=== PATIENT | female | born 1985 | race Caucasian/White ===

== ENCOUNTER 2020-10-23 10:21 | Day surgery (SDC) | payer OTHER ==
[~2020-10-23] VITALS: Ht 157.5 cm; Wt 134.9 kg
[~2020-10-23 10:21] MED LIST: BUPR300T49 PO; CHOL10003 PO; CYCL10TA2 PO; DICY10CA3 PO; GALC120P IM; HYDROCODONE PO; LACT10SO28 PO; METO-93 PO; NITR50CA PO; ONDANSETRON; PANT40TA3 PO; PENT100C2 PO; ROSU5TAB PO; ZOLP10TA PO
[2020-10-23 10:46] VITALS: BP 131/84
[2020-10-23] MEDS ORDERED: CHLORHEXIDINE 15 ML UDC ONE (10:51)
[2020-10-23] MEDS ORDERED: CHLORHEXIDINE 15 ML UDC PO ONE (11:00)
[2020-10-23] MEDS ORDERED: LACTATED RINGERS 1,000 ML IV SCH (11:00)
[2020-10-23] MEDS ORDERED: PROPOFOL 10 MG/ML, 20ML ONE ×3 (11:54→12:11)
[2020-10-23] MEDS ORDERED: MIDAZOLAM 1 MG/ML, 2ML ONE (12:32)
== END 2020-10-23 13:47 | disposition home or self-care (01) ==
LOC: OUT 10:21
PROVIDERS: ATTEND Internal Medicine
DX: K31.5 Obstruction of duodenum (principal); K21.9 Gastro-esophageal reflux disease without esophagitis; K59.04 Chronic idiopathic constipation; M79.7 Fibromyalgia; F41.9 Anxiety disorder, unspecified; G43.909 Migraine, unspecified, not intractable, without status migrainosus; E66.01 Morbid (severe) obesity due to excess calories; Z20.822 Contact with and (suspected) exposure to COVID-19; Z68.43 Body mass index [BMI] 50.0-59.9, adult; Z79.891 Long term (current) use of opiate analgesic; Z79.899 Other long term (current) drug therapy; Z87.891 Personal history of nicotine dependence; Z91.018 Allergy to other foods; Z98.890 Other specified postprocedural states; Z82.49 Family history of ischemic heart disease and other diseases of the circulatory system; Z83.2 Family history of diseases of the blood and blood-forming organs and certain disorders involving the immune mechanism
CPT/HCPCS: 43245; C1725; J2704; J7120; U0003; U0005; J2250